=== PATIENT | born 1990 | race Two or more races ===

== ENCOUNTER → 2025-05-03 08:57 | Outpatient (REF) | payer OTHER, SELFPAY | LOC: WDC 08:57 | PROVIDERS: ATTENDING PHYSICIAN Family Medicine | DX: N63.10 Unspecified lump in the right breast, unspecified quadrant (principal); N63.0 Unspecified lump in unspecified breast; N63.11 Unspecified lump in the right breast, upper outer quadrant | CPT/HCPCS: 76642; 77062; 77066 ==